=== PATIENT | female | born 1955 | race Caucasian/White ===

== ENCOUNTER 2016-12-19 06:41 | Day surgery (SDC) | payer OTHER ==
[~2016-12-19] VITALS: Ht 160 cm; Wt 81.0 kg
[2016-12-19] VITALS (11 sets, daily range): BP systolic 105–129; BP diastolic 68–81; PULSE 66–82; RESP 16–18; TEMP 97.4–98.4; O2SAT 95–98
[~2016-12-19 06:41] MED LIST: FENO130C PO; FERR325T PO; GLYB2.5T3 PO; METF1000 PO; MULT-65 PO; PANT20 PO; PHEN1TAB49 PO; ROXI5TAB4 PO; ST JTAB PO; ZANT150T2 PO; ZETI10TA5 PO
[2016-12-19] MEDS ORDERED: IOHEXOL 350 MG/ML 100 ML BTL (for Cath Lab) OTHER ONE (06:42)
[2016-12-19] MEDS ORDERED: FLINT2 CHEW (07:36)
[2016-12-19] MEDS ORDERED: PANT40TA3 PO (07:36)
[2016-12-19] MEDS ORDERED: DULA10IN SQ (07:36)
[2016-12-19] MEDS ORDERED: COEN50CH CHEW (07:36)
[2016-12-19] MEDS ORDERED: MAGN500T5 PO (07:36)
[2016-12-19] MEDS ORDERED: METF1000 PO (07:36)
[2016-12-19] MEDS ORDERED: MULT-65 PO (07:36)
[2016-12-19] MEDS ORDERED: RANI150T PO (07:36)
[2016-12-19] MEDS ORDERED: DICL50TA3 PO (07:36)
[2016-12-19] MEDS ORDERED: CARV3.125 PO (07:36)
[2016-12-19] MEDS ORDERED: PRAV40TA2 PO (07:36)
[2016-12-19] MEDS ORDERED: VITA2000 PO (07:36)
[2016-12-19] MEDS ORDERED: ASPI81TA11 PO (07:36)
[2016-12-19] MEDS ORDERED: ASPIRIN 81 MG CHEW TAB PO SCH (07:45)
[2016-12-19 07:48] LABS: AUTOMATED NEUTROPHIL # 7.9 TH/MM3 (1.8-7.7); BASOPHIL # 0.1 TH/MM3 (0-0.2); BASOPHIL % 0.5 % (0.0-2.0); EOSINOPHIL # 0.2 TH/MM3 (0-0.4); HEMATOCRIT 40.5 % (35.0-46.0); HEMO FLAGS DIFF FINAL; LYMPH % 15.7 % (9.0-44.0); LYMPHOCYTE # 1.6 TH/MM3 (1.0-4.8); MEAN CELL VOLUME 84.4 FL (80.0-100.0); MEAN CORPUSCULAR HEMOGLOBIN 28.2 PG (27.0-34.0); MEAN CORPUSCULAR HGB CONC 33.5 % (32.0-36.0); MONO % 6.2 % (0.0-8.0); NEUT % 75.6 % (16.0-70.0); PLATELET COUNT 292 TH/MM3 (150-450); RED CELL DISTRIBUTION WIDTH 15.5 % (11.6-17.2); WHITE BLOOD COUNT 10.4 TH/MM3 (4.0-11.0)
[2016-12-19 07:56] LABS: APTT (PATIENT) 26.6 SEC (24.3-30.1); PROTHROMBIN TIME - PATIENT 10.6 SEC (9.8-11.6)
[2016-12-19 08:03] LABS: BICARBONATE 28.8 MEQ/L (21.0-32.0); POTASSIUM 4.1 MEQ/L (3.5-5.1)
[2016-12-19] MEDS ORDERED: HEPARIN-NS/PF INJ 500 ML ONE (08:37)
[2016-12-19] MEDS ORDERED: MIDAZOLAM HCL 2 MG/2 ML VIAL ONE (08:37)
[2016-12-19] MEDS ORDERED: NITROGLYCERIN INJ 5 ML ONE (08:58)
[2016-12-19] MEDS ORDERED: HEPARIN SODIUM - IV 10,000 UNITS/10 ML VIAL ONE (08:58)
[2016-12-19] MEDS ORDERED: ADENOSINE STRESS TEST INJ 90 MG/30 ML VIAL ONE (08:58)
[2016-12-19] MEDS ORDERED: CLOPIDOGREL 300 MG TAB ONE (09:23)
[2016-12-19] MEDS ORDERED: TIROFIBAN INFUSION INJ 250 ML IV ONE (09:23)
[2016-12-19] MEDS: TIROFIBAN INFUSION INJ 250 ML IV SCH (09:28)
[2016-12-19] MEDS ORDERED: MISC INFORMATION XX ONE (09:45)
[2016-12-19] MEDS ORDERED: CLOPIDOGREL 300 MG TAB PO ONE (09:45)
[2016-12-19] MEDS ORDERED: SODIUM CHLORIDE 0.9% FLUSH 10 ML FLUSH IV FLUSH PRN (09:45)
--- NOTE | 2016-12-19 09:57 | CATHPROC ---
[facility] HIS Report Study Information Study Number Admission Scheduled Start Study Start [id number] Dec 19 2016 6:41AM 12/19/2016 Dec 19 2016 8:08AM [place] [facility] Cardiac Catheterization Admit Source Facility Department Other [facility] - Visual Effects Editor Physician and Clinical Staff Initial Idris Ely Humidifier Attendant Edie Clark,ARIANNA Humidifier AttendantSabi Amaya,ARIANNA Recorder Kevin Sauceda RCIS(BS) Scrub Vilma PerryRT(R) Procedures Performed Procedure Location (Site) Vessel Name Coronary Angiograms LCA Left Coronary Coronary Angiograms RCA Right Coronary L Heart Cath LV Gram-hand inj. LV LV Ventricle Stent LAD Prox Left Coronary Wire insertion Fem Art (left) Femoral Art Equipment Time Bus Starter Description Size Mfg Part Number Used/Scraped TRANSDUCER, TRUWAVE [id number] 08:18 LOZOYA PAUL * Used W/STOCKCOCK *[id number] *[id number] *[id number] *[id number] 08:18 MEDLINE IND[employer]RIES PACK, CCL CUSTOM * Used *[id number] 08:18 [employer]ice PACER PEN, SKIN DUAL W/ RULER * Used *[id number] 09:18 MEDTRONIC STENT, 3.0 9 INTEGRITY 3.0 9 Used *[id number] 09:20 [employer] MEDICAL 30 KELSEY INDEFLATOR Used *[id number] 09:11 [employer] MEDICAL SHEATH, FR6.5 PRELUDE 11CM FR 6.5 038ACT Used *[id number] 08:18 [employer] MEDICAL WIRE, 3MMJ .035 180CM 180CM Used *[id number] 08:18 NAMIC MANIFOLD, 4 PORT * Used *[id number] 08:18 [employer]COMED OMNIPAQUE, 350 MG, 150ML 150ML [id number] Used [id number] 08:18 NAGEL MEDICAL BLANKET,WARM AIR CCL * Used *[id number] 08:18 TERUMO MEDICAL SHEATH, FR4 TERUMO (10CM) FR 4 Used *[id number] 09:08 [place] PRIME WIRE, VERRATA 185CM 185CM [id number] *[id number] Used Equipment Model, Serial, Lot Number and Expiration Data Description Model Number Serial Number Lot Number Expiration Date STENT, 3.0 9 INTEGRITY [id number] 06-03-2018 History: Allergies Allergy Reaction cephalexin Hives doxycycline Hives erythromycin base Hives azithromycin Hives minocycline Hives tigecycline Hives History: Risk Factors Family History of Hypertension Dyslipidemia Previous MO Previous Heart Failure Premature CAD Yes Yes Yes No No Prior Valve Prior PCI Prior CABG Surgery No No No Cerebrovascular Peripheral Artery Chronic Lung On Dialysis Diabetes Diabetes Therapy Disease Disease Disease No No No No Yes Oral History: Stress Tests Stress or Imaging Studies Performed Yes Standard Exercise Stress Test No Stress Echo No Stress Test SPECT Yes Stress Test CMR No Cardiac CTA Coronary Calcium Score No No History: Other Current Smoker No Labs Hgb (g/dl) Hct (%) WBC (l/cumm) Platelets (thousands) 11.60-17.00 35.00-51.00 4.00-11.00 150.00-450.00 13.5 40.5 10.4 292 Glucose (mg/dl) BUN (mg/dl) Creatinine (mg/dl) BUN:Creatinine (1:x) 74.00-106.00 7.00-18.00 0.50-1.30 10.00-20.00 145 25 0.6 41.7 Na (meq/l) K (meq/l) 136.00-145.00 3.50-5.10 139 4.1 INR (PTT:PT) 0.90-1.10 1 CPK-MB (ng/ML) 0.50-3.60 Not Drawn Medication Medication Total Dose (Bolus/Oral) Medication Total Dosage/Unit 1% XYLOCAINE 20 mL AGGRASTAT BOLUS 40.9 meq/kg FENTANYL 25 mcg HEPARIN 5000 units PLAVIX 600 mg VERSED 1 mg Medications (Bolus/Oral) Medication Time Given Dosage/Unit Administered By Reason VERSED 12/19/2016 9:01:00 AM 1 mg Idris Romero 1 mg VERSED given in lab by Idris Romero via Peripheral IV. Ordered by Idris Romero. 1% XYLOCAINE 12/19/2016 9:01:27 AM 20 mL Idris Romero 20 mL 1% XYLOCAINE given in lab by Idris Romero in Left Groin via Subcutaneous. Ordered by Idris Lara. FENTANYL 12/19/2016 9:02:04 AM 12.5 mcg Sabi Guzman 12.5 mcg FENTANYL given in lab by Sabi Guzman RN in Left Antecubital via Peripheral IV. Ordered by Idris Romero. HEPARIN 12/19/2016 9:11:00 AM 5000 units Sabi Guzman 5000 units HEPARIN given in lab by Sabi Guzman RN in Left Antecubital via Peripheral IV. Ordered by Idris Romero. FENTANYL 12/19/2016 9:20:50 AM 12.5 mcg Sabi Guzman 12.5 mcg FENTANYL given in lab by Sabi Guzman RN in Left Antecubital via Peripheral IV. Ordered by Idris Romero. PLAVIX 12/19/2016 9:25:00 AM 600 mg Sabi Guzman 600 mg PLAVIX given in lab by Sabi Guzman RN via Oral. Ordered by Idris Romero. AGGRASTAT BOLUS 12/19/2016 9:26:57 AM 40.9 meq/kg Sabi Guzman 40.9 meq/kg AGGRASTAT BOLUS given in lab by Sabi Guzman RN in Left Antecubital via Peripheral IV . Amount given = 3341.53 meq. Ordered by Idris Romero. Medication (Drip) Medication Time Given Dosage/Unit Concentration/Unit Diluent (ml) Solution AGGRASTAT DRIP 12/19/2016 9:28:26 AM 0.15 mcg/kg/min 12.5 mg 250 NaCl .9 0.15 mcg/kg/min AGGRASTAT DRIP given in lab by Sabi Guzman RN in Left Antecubital via Peripheral IV. Pump/Drip Flow = 14.71 ml/hr using NaCl .9 with a concentration of 12.5 mg in 250 ml. Ordered by Idris Romero. IV Solutions 12/19/2016 8:28:27 AM 0 mL (IV) 500 NaCl .9 Patient arrived on IV Solutions in Left Antecubital via Peripheral IV. Pump/Drip Flow = 20 ml/hr usin g NaCl .9. Ordered by Idris Romero. Initial Case Assessment Cardiovascular HR Rhythm NIBP Chest Pain 71 SR W AV BLOCK 127/79 0 Edema Present Skin color Skin None Normal Warm Dry Circulatory - Right Pulses Dorsalis Pedis Femoral 2 2 Scale (0,1,2,3,4,d) Circulatory - Left Pulses Dorsalis Pedis Femoral 2 2 Scale (0,1,2,3,4,d) Circulatory - Lower Extremities Color Lower Right Color Lower Left Normal Normal Neurological State Oriented to time-place- Alert Moves all extremities person Respiration - General Respiration Rate SpO2 (%) (B/min) 20 97 Final Case Assessment Cardiovascular HR Rhythm NIBP Chest Pain 71 SR W AV BLOCK 127/79 0 Edema Present Skin color Skin None Normal Warm Dry Circulatory - Right Pulses Dorsalis Pedis Femoral 2 2 Scale (0,1,2,3,4,d) Circulatory - Left Pulses Dorsalis Pedis Femoral 2 2 Scale (0,1,2,3,4,d) Circulatory - Lower Extremities Color Lower Right Color Lower Left Normal Normal Neurological State Oriented to time-place- Alert Moves all extremities person Respiration - General Respiration Rate SpO2 (%) (B/min) 20 97 Chronological Log Time Study Chronological Log 8:28:10 Patient arrived via Bed. 8:28:11 Patient Name, D.O.B, / Armband Verified By R.N. 8:28:16 Consent signed by the physician and the patient and verified by the Visual Effects Editor staff. 8:28:17 Pre-op and post- op instructions given; patient acknowledges understanding of instructions. 8:28:19 Verbal Stimulation=2 Physical Stimulation=1 Airway=2 Respiration=2 TOTAL=7. (0=absent, 1=li mited, 2=present) 8:28:21 Patient has been NPO for More than 6Hrs. 8:28:22 Skin Breakdown- 8:28:23 Patient Warmer Placed on the Table. 8:28:26 A # 20 IV was noted in the Antecubital (left). Grade = 0 Patient arrived on IV Solutions in Left Antecubital via Peripheral IV. Pump/Drip Flow = 20 ml/h r using NaCl .9. Ordered 8:28:27 by Idris Romero. 8:28:28 History and physical on the chart or being dictated. Assessment: Initial Case, HR=71 BPM, Rhythm=SR W AV BLOCK, KSJJ=484/79 mmhg, Chest Pain=0, Edema =None, Color=Normal, Skin = Warm, Dry Right Pulses: Joey Ped=2, Femoral=2 Left Pulses: Joey Ped=2, Femoral=2 8:28:29 Lower Right Extremities: Color=Normal Lower Left Extremities: Color=Normal Neurological: State=Alert, Ox3, [place] Respiration: Resp=20 B/min, SpO2=97 % Vitals capture started with the following parameters, Patient=Adult, Interval=5 min, Initial Pre sqtxh=567 mmHg, 8:33:59 Deflation Rate=5 mmHg, Cuff placed on Right Arm 8:34:41 DX=182 bpm, JUAB=643/73 mmhg, SpO2=96.0 %, Resp=5 B/min, Pain=0, Lyndsey=10, Lemons=2 8:39:24 Reference ECG taken 8:39:34 HR=68 bpm, GQRT=985/79 mmhg, SpO2=97.0 %, Resp=12 B/min, Pain=0, Lyndsey=10, Lemons=2 8:44:35 HR=68 bpm, EYLU=357/76 mmhg, SpO2=97.0 %, Resp=11 B/min, Pain=0, Lyndsey=10, Lemons=2 8:48:00 Pressure channel 1 zeroed. 8:49:03 Bilateral groins prepped with 2% chlorhexidine, and draped after a 3 minute waiting time. 8:49:36 HR=74 bpm, ILSG=243/76 mmhg, SpO2=96.0 %, Resp=12 B/min, Pain=0, Lyndsey=10, Lemons=2 8:53:30 MD paged 8:54:35 HR=77 bpm, GUUR=978/83 mmhg, SpO2=96.0 %, Resp=15 B/min, Pain=0, Lyndsey=10, Lemons=2 8:55:52 MD arrived. 8:59:34 HR=75 bpm, RFUP=284/81 mmhg, SpO2=97.0 %, Resp=14 B/min, Pain=0, Lyndsey=10, Lemons=2 9:01:00 1 mg VERSED given in lab by Idris Romero via Peripheral IV. Ordered by Idris Romero. Time Out. Correct patient, correct procedure, correct physician, power injector not loaded with contrast with surgical 9:01:12 team present. Time Out Concurred by MD and individual staff in procedure. 9:01:26 Case Start 9:01:27 20 mL 1% XYLOCAINE given in lab by Idris Romero in Left Groin via Subcutaneous. Ordered by Idris Romero. 12.5 mcg FENTANYL given in lab by Sabi Guzman RN in Left Antecubital via Peripheral IV. Ord ered by Heather, 9:: Idris. 9::18 Access site was Left Femoral Artery. 9:03:29 A SHEATH, FR4 TERUMO (10CM) FR 4 was advanced into the Fem Art (left) using the Percutaneous technique. A JR 4.0 INFINITI CATHETER FR 4 was advanced over a wire. OMNIPAQUE, 350 MG, 150ML 150ML was use d for 9:04:02 injections. 9:04:37 HR=73 bpm, YZWL=271/80 mmhg, SpO2=97.0 %, Resp=14 B/min, Pain=0, Lyndsey=10, Lemons=2 Recorded Pressure: LV, HR=74, Condition=Condition 1 9:04:39 (Left Ventricle) LV 137/7/11 9:04:45 The LV was manually injected with 10 cc's and visualized. OMNIPAQUE, 350 MG, 150ML 150ML use d. Recorded Pressure: LV, Ao, HR=73, Condition=Condition 1 9:04:57 (Left Ventricle) LV 129/11/39, (Aorta) Ao 129/73/98 9:05:51 The RCA was injected and visualized at various angles. OMNIPAQUE, 350 MG, 150ML 150ML used. Recorded Pressure: Ao, HR=80, Condition=Condition 1 9:06:01 (Aorta) Ao 127/76/98 9:06:17 Catheter was removed A JL 4.0 INFINITI CATHETER FR 4 was advanced over a wire. OMNIPAQUE, 350 MG, 150ML 150ML was use d for 9:06:28 injections. 9:07:25 The LCA was injected and visualized at various angles. OMNIPAQUE, 350 MG, 150ML 150ML used. 9:09:18 Catheter was removed 9:09:34 HR=77 bpm, AFPV=670/84 mmhg, SpO2=95.0 %, Resp=22 B/min, Pain=0, Lyndsey=10, Lemons=2 A SHEATH, FR6.5 PRELUDE 11CM FR 6.5 was exchanged in the Fem Art (left). This was necessary in o rder to 9:09:39 accomodate a larger catheter. 5000 units HEPARIN given in lab by Sabi Guzman RN in Left Antecubital via Peripheral IV. Or dered by Heather, 9:11:00 Idris. A XB 3.0 GUIDE CATHETER FR 6 was advanced over a wire. OMNIPAQUE, 350 MG, 150ML 150ML was used f or 9:13:04 injections. 9:14:39 HR=75 bpm, ZXLW=914/79 mmhg, SpO2=96.0 %, Resp=14 B/min, Pain=0, Lyndsey=10, Lemons=2 9:14:40 Activated Clotting Time Drawn 9:15:09 A PRIME WIRE, VERRATA 185CM 185CM was inserted via Fem Art (left). 9:16:08 Flow Wire was was placed in the LAD Prox. The FFR measures ~FFR~ percent. The IFR measures 0 .86 Percent. 9:17:00 ACT (Normal Range 90-180) = 262 An STENT, 3.0 9 INTEGRITY 3.0 9 Bare Metal Stent was inserted through a XB 3.0 GUIDE CATHETER FR 6 over a 9:19:16 PRIME WIRE, VERRATA 185CM 185CM. A STENT, 3.0 9 INTEGRITY 3.0 9 was deployed using a 30 KELSEY INDEFLATOR at 10 atmospheres for 15 s econds in the 9:19:32 LAD Prox. 9:19:34 HR=74 bpm, RSKQ=019/85 mmhg, SpO2=96.0 %, Resp=13 B/min, Pain=0, Lyndsey=10, Lemons=2 9:20:34 Delivery device removed 12.5 mcg FENTANYL given in lab by Sabi Guzman RN in Left Antecubital via Peripheral IV. Ord ered by Heather, 9:20:50 Idris. 9:22:33 Wire removed 9:22:49 Catheter was removed 9:23:06 Case End 9:24:37 HR=72 bpm, XASD=628/83 mmhg, SpO2=96.0 %, Resp=14 B/min, Pain=0, Lyndsey=10, Lemons=2 9:25:00 600 mg PLAVIX given in lab by Sabi Guzman, ARIANNA via Oral. Ordered by Idris Romero. Assessment: Final Case, HR=71 BPM, Rhythm=SR W AV BLOCK, RCCS=947/79 mmhg, Chest Pain=0, Edema=N one, Color=Normal, Skin = Warm, Dry Right Pulses: Joey Ped=2, Femoral=2 Left Pulses: Joey Ped=2, Femoral=2 9:25:03 Lower Right Extremities: Color=Normal Lower Left Extremities: Color=Normal Neurological: State=Alert, Ox3, [place] Respiration: Resp=20 B/min, SpO2=97 % 40.9 meq/kg AGGRASTAT BOLUS given in lab by Sabi Guzman, RN in Left Antecubital via Peripher al IV. Amount 9:26:57 given = 3341.53 meq. Ordered by Idris Romero. 0.15 mcg/kg/min AGGRASTAT DRIP given in lab by Sabi Guzman, ARIANNA in Left Antecubital via Perip heral IV. 9:28:26 Pump/Drip Flow = 14.71 ml/hr using NaCl .9 with a concentration of 12.5 mg in 250 ml. Ordered by Idris Romero. 9:29:38 HR=71 bpm, HIOG=930/79 mmhg, SpO2=94.0 %, Resp=11 B/min, Pain=0, Lyndsey=10, Lemons=2 9:30:43 Sterile dressing applied to site 9:30:45 No case complications noted. 9:30:46 Cine recording checked. 9:30:49 Bedside Report will be given. 9:30:50 Implantable Device card placed in patient's chart. 9:30:51 Contrast Scanned 9:30:54 A Left Heart Cath was performed. 9:34:40 Vitals capture stopped. 9:34:46 Patient moved to [facility] End Study - Contrast Media Used In Study Contrast Total Opened (mL) Total Used (mL) Total Wasted (mL) Omnipaque 70 70 0 End Study - Maximum Contrast Load Max Contrast Load (mL) 680.7 End Study - Radiation Exposure Fluoro Time (minutes) 4.9 End Study - Patient Disposition Complications Transferred To Interventional Outcome No Telemetry Bed successful
--- NOTE | 2016-12-19 19:11 | EKG ---
Date Performed: 12/19/2016 Time Performed: 07:44:36 PTAGE: 61 years EKG: Sinus rhythm with 1st degree A-V block Right axis deviation Right bundle branch block Possible inferior infarct - age undetermined Low QRS voltages in precordial leads Abnormal ECG PREVIOUS TRACING : 05/27/2013 06.54 Compared to prior tracing no significant change DOCTOR: Kosta Bryan Interpretating Date/Time 12/19/2016 19:10:22
--- NOTE | 2016-12-19 19:57 | MR ---
cc: CECILE ENCINAS M.D. DATE: 12/19/2016. PROCEDURE PERFORMED: Left heart catheterization, left ventriculography, coronary arteriography, IFR of the proximal left anterior descending and direct percutaneous coronary intervention of the proximal left anterior descending. INDICATIONS FOR THE PROCEDURE: Worsening severe dyspnea at rest, anginal equivalent, unstable angina [place] [employer] Society class I angina, coronary artery disease, history of 50% proximal left anterior descending with an FFR of 0.88, moderate-sized reversal defect/fixed defect in the anterior apical wall, ejection fraction 61%, preop noncardiac surgery, coronary artery disease. DESCRIPTION OF THE PROCEDURE IN DETAIL: The patient was brought to the cardiac catheterization lab and prepped and draped in the usual sterile fashion. 10 cc of 1% lidocaine was used to locally anesthetize the left femoral artery area. This was done due to severe right hip pain. A 4-Rwandan sheath was successfully placed in the left common femoral artery. A 4-Rwandan JL-4 and JR-4 catheters were used to perform right and left coronary angiography and left ventriculography. FINDINGS: The LV pressures are 140/10-11. Ejection fraction is 45%. There appears to be mild hypokinesis of the anterior apical wall. The right coronary artery is dominant and has mild diffuse disease, up to 10% angiographically in the mid to distal segment. The left main coronary artery has no significant disease angiographically. The left circumflex vessel has no significant disease angiographically. The first obtuse marginal vessel is a medium to large sized vessel bifurcating in the mid to distal segments, highly tortuous. The bifurcated branches approach the apex. The left anterior descending is large and transapical. There is a 74% stenosis just after a very high takeoff of the first diagonal artery. There is mild disease after the second diagonal artery, probably 20% angiographically. The first and second diagonal arteries are small vessels, probably 1.5 to 2.0 mm in diameter with no significant disease angiographically. The 4-Rwandan sheath was exchanged for a 6-Rwandan sheath. 60 units/kilo of heparin was given. ACT was 262. A 6-Rwandan XB 3.0 guide and a 0.014 [place] pressure wire were placed into the left main also the proximal left anterior descending. The introducer was removed. The was thoroughly fastened. The guide was flushed thoroughly with 20 mL of normal saline. Pressure waveform normalization was then performed. The 0.014 [place] pressure wire was then advanced into the distal left anterior descending. The IF flow was 0.86. Percutaneous coronary intervention was then indicated. Therefore a 3.0 x 9 Integrity stent was used to directly stent the proximal left anterior descending lesion with one inflation to 10 atmospheres for 20 seconds. The stenosis went from 74% to 0% with DIANE III flow. CONCLUSIONS: 1. Severe worsening dyspnea at rest. Anginal equivalent unstable angina [place] [employer] Society Class IV angina. Culprit 74% proximal left anterior descending stenosis with IFR equal to 0.86 as detailed above. Otherwise, mild two-vessel coronary artery disease in a right dominant system. 2. Mild left ventricular systolic dysfunction with ejection fraction of 45% with mild hypokinesis of the anterior apical wall. 3. Successful direct percutaneous coronary intervention of bare-metal stent of the proximal left anterior descending from 74% to 0% with DIANE III flow. 4. Recommend Plavix 600 milligrams p.o. load and then 75 milligrams a day for at least 12 to 15 months. 5. Aspirin 162 milligrams daily. 6. I have instructed the patient to stop her Pravastatin and I am going to start Lipitor 40 milligrams at bedtime. 7. I have also instructed the patient myself personally to hold the Metformin / Glucophage for 48 hours post procedure. 8. Also note the patient will need at least two weeks, preferably four weeks and possibly six weeks of dual antiplatelet therapy with aspirin and Plavix prior to non-cardiac surgery. She will follow up with me on Friday, December 23, 2016. MD KIMI Ayala/SARMAD /9:31 AM /7:06 PM
[2016-12-19] MEDS: SODIUM CHLORIDE 0.9% FLUSH 10 ML FLUSH IV FLUSH SCH (21:00)
[2016-12-20] VITALS (9 sets, daily range): BP systolic 120–150; BP diastolic 69–81; PULSE 64–86; RESP 18; TEMP 97.8; O2SAT 97
[2016-12-20] MEDS: TIROFIBAN INFUSION INJ 250 ML IV SCH (01:47)
[2016-12-20 04:28] LABS: AUTOMATED NEUTROPHIL # 5.3 TH/MM3 (1.8-7.7); BASOPHIL % 0.6 % (0.0-2.0); EOSINOPHIL # 0.2 TH/MM3 (0-0.4); EOSINOPHIL % 2.9 % (0.0-4.0); HEMATOCRIT 39.3 % (35.0-46.0); HEMO FLAGS DIFF FINAL; LYMPH % 23.3 % (9.0-44.0); LYMPHOCYTE # 1.9 TH/MM3 (1.0-4.8); MEAN CELL VOLUME 84.2 FL (80.0-100.0); MEAN CORPUSCULAR HEMOGLOBIN 27.7 PG (27.0-34.0); MONO % 6.8 % (0.0-8.0); NEUT % 66.4 % (16.0-70.0); PLATELET COUNT 302 TH/MM3 (150-450); RED BLOOD COUNT 4.67 MIL/MM3 (4.00-5.30); RED CELL DISTRIBUTION WIDTH 15.7 % (11.6-17.2)
[2016-12-20 04:53] LABS: BICARBONATE 26.7 MEQ/L (21.0-32.0); POTASSIUM 3.6 MEQ/L (3.5-5.1)
[2016-12-20 05:09] LABS: HDL CHOLESTEROL 36.1 MG/DL (40.0-60.0)
[2016-12-20] MEDS: SODIUM CHLORIDE 0.9% FLUSH 10 ML FLUSH IV FLUSH SCH (08:47)
[2016-12-20] MEDS ORDERED: ASPIRIN 81 MG CHEW TAB PO SCH (09:00)
[2016-12-20] MEDS ORDERED: CLOPIDOGREL 75 MG TAB PO SCH (09:00)
[2016-12-20] MEDS ORDERED: LIPI40TA PO (09:25)
[2016-12-20] MEDS ORDERED: PLAV75TA29 PO (09:25)
[2016-12-20] MEDS ORDERED: ASPI81CH37 CHEW (09:26)
--- NOTE | 2016-12-21 21:01 | EKG ---
Date Performed: 12/20/2016 Time Performed: 05:02:54 PTAGE: 61 years EKG: Sinus rhythm with 1st degree A-V block Right axis deviation Right bundle branch block Possible inferior infarct - age undetermined Low QRS voltages in precordial leads Abnormal ECG PREVIOUS TRACING : 12/19/2016 11.37 DOCTOR: Josefina Mei Interpretating Date/Time 12/21/2016 20:53:49
--- NOTE | 2016-12-21 21:15 | EKG ---
Date Performed: 12/19/2016 Time Performed: 11:37:36 PTAGE: 61 years EKG: Sinus rhythm with 1st degree A-V block Right axis deviation Right bundle branch block Inferior infarct - age unde termined Possible anterior infarct - age undetermined Low QRS voltages in precordial leads Abnormal E CG PREVIOUS TRACING : 12/19/2016 07.44 DOCTOR: Josefina Mei Interpretating Date/Time 12/21/2016 21:04:17
== END 2016-12-20 10:10 | disposition home or self-care (01) ==
LOC: HDOC 06:41 → HDIC 06:42 → HCIN 13:30 → HDOC 12-20 10:10
PROVIDERS: ATTEND Internal Medicine Interventional Cardiology
DX: I25.110 Atherosclerotic heart disease of native coronary artery with unstable angina pectoris (principal); E11.9 Type 2 diabetes mellitus without complications; Z79.84 Long term (current) use of oral hypoglycemic drugs; Z79.01 Long term (current) use of anticoagulants; Z79.82 Long term (current) use of aspirin
CPT/HCPCS: 80048; 80061; 82550; 85002; 85025; 85347; 85610; 85730; 92928; 93005; 93458; 93571; 99152; 99153; C1769; C1876; C1887; C1893; J0153; J1644; J2250; J3010; J3246; Q9967